=== PATIENT | male | born 1985 | race Two or more races ===

== ENCOUNTER 2020-05-29 10:00 | Emergency (ER) | payer OTHER ==
[2020-05-29] MEDS ORDERED: traMADol HCL 50 MG TAB PO ONE (14:00)
== END 2020-05-29 15:50 | disposition home or self-care (01) ==
LOC: ER 10:00
DX: H10.32 Unspecified acute conjunctivitis, left eye (principal); L02.212 Cutaneous abscess of back [any part, except buttock and flank]
CPT/HCPCS: 93926

== ENCOUNTER 2020-09-20 21:07 | Inpatient (IN) | payer MEDICAID, OTHER ==
[~2020-09-20] VITALS: Ht 180.3 cm; Wt 70.3 kg
[2020-09-20 22:20] LABS: Basophils # (auto) 0 10 ^3/uL (0-0.2); Basophils % (auto) 0.3 % (0.0-2.0); Eosinophils # (auto) 0 10 ^3/uL (0-0.8); Eosinophils % (auto) 0.4 % (0.0-7.0); Hematocrit 39.3 % (41.0-53.0); Lymphocytes # (auto) 1.3 10 ^3/uL (0.4-5.4); Lymphocytes % (auto) 11.1 % (10.0-50.0); Mean Corpuscular Hemoglobin 30.4 pg (28.0-32.0); Mean Corpuscular Hgb Conc. 33.2 g/dL (32.0-36.0); Mean Corpuscular Volume 91.7 fL (80.0-100.0); Monocytes % (auto) 8.1 % (0.0-12.0); Neutrophils # (auto) 9.4 10 ^3/uL (1.6-8.6); Neutrophils % (auto) 80.1 % (37.0-80.0); Platelet Count (auto) 406 10^3/uL (140-450); Red Blood Cells 4.29 10^6/uL (4.5-5.90); Red Cell Distribution Width 13.1 % (11.8-14.3); White Blood Cell 11.7 10^3/uL (4.4-10.8)
[2020-09-20 22:37] LABS: Albumin 3.1 g/dL (3.4-5.0); Calcium 8.6 mg/dL (8.5-10.1); Potassium 4.1 mmol/L (3.5-5.1)
[2020-09-20 22:40] LABS: BUN/Creatinine Ratio 15.1; Bilirubin, Total 0.3 mg/dL (0.2-1.0); Total Protein 7.6 g/dL (6.4-8.2)
[2020-09-21] MEDS ORDERED: cefTRIAXone 1GM/50ML D5W 50 ML IV ONE (00:45)
[2020-09-21] MEDS ORDERED: CLINDAMYCIN 900MG IV 50 ML IV ONE (01:30)
[2020-09-21] MEDS ORDERED: ONDANSETRON HCL 4 MG/2 ML VIAL IV ONE (02:15)
[2020-09-21] MEDS ORDERED: MORPHINE SULFATE 4 MG/ML SYR/VIAL IV ONE (02:15)
[2020-09-21] MEDS ORDERED: ACETAMINOPHEN 325 MG TAB PO ONE (02:15)
[2020-09-21] MEDS ORDERED: DOCUSATE SOD 100 MG CAP PO PRN (03:45)
[2020-09-21] MEDS ORDERED: ONDANSETRON HCL 4 MG/2 ML VIAL IV PRN (03:45)
[2020-09-21] MEDS ORDERED: VANCOMYCIN PER PHARMACY 0 MG IV SCH (03:45)
[2020-09-21] MEDS ORDERED: ACETAMINOPHEN 325 MG TAB PO PRN (03:45)
[2020-09-21] MEDS ORDERED: NITROGLYCERIN 0.4 MG SL TAB SL PRN (03:45)
[2020-09-21] MEDS ORDERED: MORPHINE SULF INJ 2 MG/ML SYRINGE 1ML IV PRN (03:45)
[2020-09-21 03:57] LABS: Basophils # (auto) 0.1 10 ^3/uL (0-0.2); Basophils % (auto) 0.6 % (0.0-2.0); Eosinophils # (auto) 0.1 10 ^3/uL (0-0.8); Eosinophils % (auto) 0.6 % (0.0-7.0); Hematocrit 37.6 % (41.0-53.0); Hemoglobin 12.4 g/dL (13.5-17.5); Lymphocytes # (auto) 1.6 10 ^3/uL (0.4-5.4); Lymphocytes % (auto) 13.7 % (10.0-50.0); Mean Corpuscular Hemoglobin 30.5 pg (28.0-32.0); Mean Corpuscular Hgb Conc. 32.9 g/dL (32.0-36.0); Mean Corpuscular Volume 92.7 fL (80.0-100.0); Monocytes # (auto) 1.2 10 ^3/uL (0-1.3); Monocytes % (auto) 9.7 % (0.0-12.0); Neutrophils % (auto) 75.4 % (37.0-80.0); Platelet Count (auto) 372 10^3/uL (140-450); Red Blood Cells 4.06 10^6/uL (4.5-5.90); Red Cell Distribution Width 13.1 % (11.8-14.3); White Blood Cell 11.9 10^3/uL (4.4-10.8)
[2020-09-21] MEDS ORDERED: VANCOMYCIN 1GM/250ML 250 ML IV ONE (04:00)
[2020-09-21 04:13] LABS: Albumin 2.6 g/dL (3.4-5.0); Calcium 8.3 mg/dL (8.5-10.1)
[2020-09-21 04:15] LABS: BUN/Creatinine Ratio 13.3
[2020-09-21 04:18] LABS: Bilirubin, Total 0.3 mg/dL (0.2-1.0); Total Protein 6.6 g/dL (6.4-8.2)
[2020-09-21] MEDS: SODIUM CHLOR 0.9% PF (SALINE LOCK) 10ML VIAL/SYR IV SCH ×3 (06:30→21:01)
[2020-09-21] MEDS: PIPERACILLIN-TAZOB 3.375GM 100 ML IV SCH ×3 (06:30→21:56)
[2020-09-21 06:37] LABS: Urine Amorphous Crystal FEW /hpf (None Seen); Urine Bacteria NONE SEEN /hpf (None Seen); Urine Blood Negative /uL (Negative); Urine Specific Gravity 1.021 (1.001-1.035); Urine WBC 2 /hpf (0 - 3)
[2020-09-21] MEDS: MORPHINE SULFATE 4 MG/ML SYR/VIAL IV PRN ×2 (10:17→15:32)
[2020-09-21] MEDS: FAMOTIDINE 20 MG TAB PO SCH ×2 (10:18→21:00)
[2020-09-21] MEDS: ASCORBIC ACID 500 MG TAB PO SCH ×2 (10:18→20:59)
[2020-09-21] MEDS: MULTIPLE VITAMIN TAB PO SCH (10:18)
[2020-09-21] MEDS: ZINC SULFATE 220mg CAP or TAB PO SCH (10:18)
[2020-09-21] MEDS: ENOXAPARIN SOD 40 MG/0.4 ML SYRINGE SC SCH (10:18)
[2020-09-21] MEDS ORDERED: CLINDAMYCIN 300MG IV 50 ML IV ONE (14:30)
--- NOTE | 2020-09-21 16:38 | NUR ---
Assessment Regarding social service consult for homeless. Patient stated he is not homeless and that he will be returning home with his mother. Patient refused to answer any more questions. Patient refused all resources. Informed EMIR Tolbert.
--- NOTE | 2020-09-21 17:30 | NUR ---
Telemetry admit from ER ASTER DURHAM admitted to Telemetry unit after SBAR received. Patient oriented to cassy FERNANDEZ RN, unit, room, bed, and unit policies regarding patient care and visiting hours. Patient now on continuous telemetry monitoring, tele box #[id number] and telemetry reading on arrival to unit is [id number]. Patient on room air, weighed by bedscale and encouraged to call if they need something. All questions and concerns addressed, patient verbalized understanding.
[2020-09-21 17:55] VITALS: BP 120/77
[2020-09-21 18:20] LABS: Alcohol, Urine < 3.0 mg/dL (0-10); Amphetamine Screen, Urine POSITIVE (NEGATIVE); Barbiturate Scree,Urine NEGATIVE (NEGATIVE); Benzodiazephine Screen, Urine NEGATIVE (NEGATIVE); Cannabinoid Screen, Urine POSITIVE (NEGATIVE); Cocaine Screen, Urine NEGATIVE (NEGATIVE); Opiate Scree,Urine NEGATIVE (NEGATIVE); Phencyclidine Screen, Urine NEGATIVE (NEGATIVE)
--- NOTE | 2020-09-21 18:27 | NUR ---
Wound photos taken
[2020-09-21] MEDS: Ensure HIGH Protein Chocolate 8oz Bottle PO SCH (18:29)
[2020-09-21] MEDS: HYDROcodone-ACET 5/325MG TAB PO PRN (18:29)
[2020-09-21] MEDS: VANCOMYCIN 1GM/250ML 250 ML IV SCH (18:29)
[2020-09-21 18:30] VITALS: BP 120/77
--- NOTE | 2020-09-21 19:09 | NUR ---
Care endorsed to [facility] RN [place]. Patient resting in bed comfortably, with even and unlabored respirations. All safety precautions in place.
[2020-09-21] MEDS: CLINDAMYCIN 300MG IV 50 ML IV SCH (20:59)
[2020-09-21 22:49] VITALS: BP 136/72
[2020-09-22] MEDS: VANCOMYCIN 1GM/250ML 250 ML IV SCH ×2 (02:11→09:41)
[2020-09-22] MEDS: HYDROcodone-ACET 5/325MG TAB PO PRN (03:56)
[2020-09-22] MEDS: CLINDAMYCIN 300MG IV 50 ML IV SCH ×2 (04:54→14:00)
[2020-09-22 05:50] VITALS: BP 120/78
[2020-09-22 06:06] LABS: Basophils # (auto) 0 10 ^3/uL (0-0.2); Basophils % (auto) 0.2 % (0.0-2.0); Eosinophils # (auto) 0.1 10 ^3/uL (0-0.8); Eosinophils % (auto) 0.9 % (0.0-7.0); Hematocrit 39.6 % (41.0-53.0); Hemoglobin 13.4 g/dL (13.5-17.5); Lymphocytes # (auto) 1.4 10 ^3/uL (0.4-5.4); Lymphocytes % (auto) 15.4 % (10.0-50.0); Mean Corpuscular Hemoglobin 31.1 pg (28.0-32.0); Mean Corpuscular Hgb Conc. 33.7 g/dL (32.0-36.0); Mean Corpuscular Volume 92.2 fL (80.0-100.0); Monocytes # (auto) 0.9 10 ^3/uL (0-1.3); Monocytes % (auto) 10.2 % (0.0-12.0); Neutrophils # (auto) 6.8 10 ^3/uL (1.6-8.6); Neutrophils % (auto) 73.3 % (37.0-80.0); Platelet Count (auto) 377 10^3/uL (140-450); Red Cell Distribution Width 13.3 % (11.8-14.3); White Blood Cell 9.2 10^3/uL (4.4-10.8)
[2020-09-22] MEDS: SODIUM CHLOR 0.9% PF (SALINE LOCK) 10ML VIAL/SYR IV SCH ×2 (06:06→13:16)
[2020-09-22] MEDS: PIPERACILLIN-TAZOB 3.375GM 100 ML IV SCH ×2 (06:06→14:00)
[2020-09-22 06:21] LABS: INR 1.03 (0.9-1.15)
[2020-09-22 06:35] LABS: Albumin 2.7 g/dL (3.4-5.0); BUN/Creatinine Ratio 17.9; Bilirubin, Total 0.5 mg/dL (0.2-1.0); Calcium 8.7 mg/dL (8.5-10.1)
--- NOTE | 2020-09-22 07:45 | NUR ---
Opening Note Assumed pt care from NOC RN. Pt is a/ox4 with no s/s of distress or SOB. Pt is currently sitting upright in bed with no complaints at this time. Wound to L contreras is open to air; pt self removed dressing. No drainage noted from wound. Discussed POC with pt and pending Podiatry consult. Safety measures maintained with call light within reach, bed in lowest position and side rails up. Will continue to monitor for changes.
[2020-09-22] MEDS: Ensure HIGH Protein Chocolate 8oz Bottle PO SCH ×2 (07:58→12:00)
[2020-09-22 09:00] VITALS: BP 124/71
[2020-09-22] MEDS: ZINC SULFATE 220mg CAP or TAB PO SCH (09:41)
[2020-09-22] MEDS: ASCORBIC ACID 500 MG TAB PO SCH (09:41)
[2020-09-22] MEDS: MULTIPLE VITAMIN TAB PO SCH (09:41)
[2020-09-22] MEDS: FAMOTIDINE 20 MG TAB PO SCH (09:41)
[2020-09-22] MEDS: ENOXAPARIN SOD 40 MG/0.4 ML SYRINGE SC SCH (09:42)
--- NOTE | 2020-09-22 10:00 | NUR ---
WOUND CARE NOTE: IN TO SEE PATIENT AT THIS TIME PER WOUND CARE CONSULT REQUEST. PATIENT ADMITTED TO [facility] WITH DIAGNOSIS OF LLE CELLULITIS, ABSCESS. PATIENT HAS CURRENT YONNY SCORE OF 19. PATIENT IS FULLY AMBULATORY. PATIENT STATES THAT HE RECEIVED WOUND TO E AFTER INJURING LEG ON CONCRETE. WOUND IS APPROXIMATELY 2 WEEKS OLD. WOUND GETTING WORSE, PRESENTED TO ER YESTERDAY. PATIENT IS NOTED TO HAVE AN OPEN LACERATION TO THE LEFT GE, MEASURING 2 X 1 X 0.3 CM. WOUND IS FULL THICKNESS, SCANT PINK PURULENT DRAINAGE NOTED. WOUND BED IS PALE RED AND DARK RED, WITH DARK RED, TAUTE PERIWOUND. CLEANSED WITH WOUND CLEANSER, PAT DRY WITH STERILE GAUZE. APPLIED THERAHONEY INTO WOUND BED. COVERED WITH OPTIFOAM GENTLE DRESSING. NO OTHER WOUNDS NOTED. RECOMMEND: EOD/PRN DRESSING CHANGE TO E WOUND, SKIN/WOUND CARE PLAN, ELEVATION OF LLE UP ONTO PILLOWS FOR EDEMA CONTROL, CONTINUED MONITORING BY WOUND CARE TEAM. Addendum: 09/22/20 at 1310 by Olya Gibbs RN Amended: Links added.
--- NOTE | 2020-09-22 11:12 | NUR ---
Pt Off Unit to Smoke Signed AMA in chart. Addendum: 09/22/20 at 1130 by JASON FIELDS RN RN PT BACK ON UNIT
--- NOTE | 2020-09-22 11:39 | NUR ---
Pt Upset Pt states "I want this IV out... I am not able to get food in the cafeteria but security won't allow me". Provided pt with education regarding pts and access to cafeteria. Pt the requests for me to take out the IV and then place a new one; further provided education on IV and purpose of. Offered pt food from pantry; pt refused. Calmed pt down at this point. Still upset and wishes to speak to the doctor about possible discharge. Notified pt of who MD was today. Will continue to monitor situation. Addendum: 09/22/20 at 1220 by JASON FIELDS RN RN Pt self removed IV stating, "I am going to go get something to eat". Educated pt on need for IV and treatment. Pt agreeable to treatment, but states "I just am going to get food from across the street and come back" Spoke with pt about how that would be leaving the hospital campus and therefore eloping. Pt states, "I will come back, I just am going to get something to eat". Pt further requested to see the Dr for his RX for antibiotics so he could leave. Spoke with adult high school instructorAlberto. Alberto as well as security spoke with pt about leaving the campus and eloping. Pt then walked out of room stating "I am going smoking, I am not a F child". Security aware of situation and will follow. Pt's IV is currently out. Pt still does have tele monitor on. Will continue to monitor situation. Addendum: 09/22/20 at 1233 by JASON FIELDS RN RN Pt returned to unit. Attempted to speak with pt and see if possibly starting a new IV on the pt for continuation of antibiotics. Pt states, "All I want is the Dr to come in and give me my antibiotic so I can leave... I am not trying to f stay here for 10 days". Discussed with pt the pending labs and cultures as well as consults needed before we could send him home with an Rx. Pt upset and states "well what is taking so long". Further reiterated the situation, pt still not agreeable to IV and adamant that he is to leave with a Rx and requests the Dr now. Notified that Dr is rounding currently. Told pt that I would be back within 30 minutes to allow the pt to compose himself and reassess the situation. Will continue to monitor the situation. Addendum: 09/22/20 at 1356 by JASON FIELDS RN RN Pt still refusing IV at this point. Will notify MD upon rounding.
[2020-09-22 11:53] VITALS: BP 123/69
--- NOTE | 2020-09-22 14:57 | NUR ---
Dr Maravilla at Bedside MD to see pt. Plans to d/c pt home today with ABX. Will implement and continue to monitor.
[2020-09-22 15:42] VITALS: BP 124/71
--- NOTE | 2020-09-22 16:03 | NUR ---
Tele 26 Sent to ICU Staff made aware.
--- NOTE | 2020-09-22 16:44 | NUR ---
Pt D/C'ed off Unit Pt ambulated off unit with all belongings, education material, and all questions were answered. Pt aware of follow up appointments as well as need to fill prescriptions. IV and tele box were d/c'ed prior to d/c.
== END 2020-09-22 16:49 | disposition home or self-care (01) | DRG 383 ==
LOC: ER 21:11 → TELE 21:12 → TELE-CENTR 09-21 17:30
PROVIDERS: ADMIT Nurse Practitioner Family; ATTEND Internal Medicine
DX: L03.116 Cellulitis of left lower limb (principal); E44.0 Moderate protein-calorie malnutrition; R65.10 Systemic inflammatory response syndrome (SIRS) of non-infectious origin without acute organ dysfunction; E88.09 Other disorders of plasma-protein metabolism, not elsewhere classified; D63.8 Anemia in other chronic diseases classified elsewhere; L08.9 Local infection of the skin and subcutaneous tissue, unspecified; R79.89 Other specified abnormal findings of blood chemistry; L02.416 Cutaneous abscess of left lower limb; W18.39XA Other fall on same level, initial encounter; F17.210 Nicotine dependence, cigarettes, uncomplicated; S81.802A Unspecified open wound, left lower leg, initial encounter; F14.10 Cocaine abuse, uncomplicated; Y93.89 Activity, other specified; Y99.8 Other external cause status; Y92.89 Other specified places as the place of occurrence of the external cause; Z79.899 Other long term (current) drug therapy
CPT/HCPCS: 36415; 73700; 80053; 80307; 81001; 83605; 84443; 85025; 85610; 87040; 87077; 87186; 87205; 96365; 96367; 96372; 96375; G0378; J0696; J2405; J2543; J3490

== ENCOUNTER 2021-05-05 18:54 | Emergency (ER) | payer MEDICAID ==
[~2021-05-05] VITALS: Ht 180.3 cm; Wt 77.1 kg
[2021-05-05] MEDS ORDERED: ONDANSETRON HCL 4 MG/2 ML VIAL IV ONE (20:00)
[2021-05-05] MEDS ORDERED: ALUM & MAG HYDROX-SIMETH LIQ(MAALOX) 30 ML PO ONE (20:00)
[2021-05-05] MEDS ORDERED: LIDOCAINE VISCOUS 2% 15ML UD PO ONE (20:00)
[2021-05-05] MEDS ORDERED: SODIUM CHLORIDE 0.9% 1,000 ML IVB ONE (20:00)
[2021-05-05 20:24] LABS: Basophils # (auto) 0.1 10 ^3/uL (0-0.2); Basophils % (auto) 0.8 % (0.0-2.0); Eosinophils # (auto) 0 10 ^3/uL (0-0.8); Eosinophils % (auto) 0.6 % (0.0-7.0); Hematocrit 44.5 % (41.0-53.0); Hemoglobin 14.8 g/dL (13.5-17.5); Lymphocytes # (auto) 1.8 10 ^3/uL (0.4-5.4); Lymphocytes % (auto) 23.4 % (10.0-50.0); Mean Corpuscular Hemoglobin 30.1 pg (28.0-32.0); Mean Corpuscular Hgb Conc. 33.2 g/dL (32.0-36.0); Mean Corpuscular Volume 90.6 fL (80.0-100.0); Monocytes # (auto) 0.7 10 ^3/uL (0-1.3); Monocytes % (auto) 9.3 % (0.0-12.0); Neutrophils % (auto) 65.9 % (37.0-80.0); Nucleated Red Blood Cells % 0.1 %; Red Blood Cells 4.91 10^6/uL (4.5-5.90); Red Cell Distribution Width 13.6 % (11.8-14.3); White Blood Cell 7.6 10^3/uL (4.4-10.8)
[2021-05-05 20:26] LABS: Anion Gap 9 (5-15); Blood Alcohol < 3.0 mg/dL (0-5); Blood Urea Nitrogen 12 mg/dL (7-18); Calcium 9.1 mg/dL (8.5-10.1); Carbon Dioxide 24 mmol/L (21-32); Chloride 106 mmol/L (98-107); Glucose 114 mg/dL (74-106); Lipase 69 U/L (73-393); Magnesium 2.2 mg/dL (1.6-2.6); Potassium 3.9 mmol/L (3.5-5.1); Sodium 139 mmol/L (136-145)
[2021-05-05 20:30] LABS: Alanine Aminotransferase 159 U/L (16-61); Alkaline Phosphatase 127 U/L (45-117); Aspartate Aminotransferase 79 U/L (15-37); BUN/Creatinine Ratio 10.7; Bilirubin, Total 0.9 mg/dL (0.2-1.0); GFR African American 96 mL/min; GFR Non-African American 79 mL/min
[2021-05-05] MEDS ORDERED: IOHEXOL 300 MG/ML 100ML BOTTLE IJ ONE (20:32)
[2021-05-05 21:55] VITALS: BP 126/97
== END 2021-05-06 00:02 | disposition home or self-care (01) ==
LOC: EDBD 18:54 → EDUNIT# 18:54 → ER 18:56
DX: R74.01 Elevation of levels of liver transaminase levels (principal); R10.84 Generalized abdominal pain; R74.8 Abnormal levels of other serum enzymes; F12.10 Cannabis abuse, uncomplicated; F15.10 Other stimulant abuse, uncomplicated; Z59.0 Homelessness
CPT/HCPCS: 36415; 74177; 80053; 80320; 83605; 83690; 83735; 85025; 85049; 93005; 96361; 96374; 99285; J2405; J7030; Q9967

== ENCOUNTER 2021-09-18 22:21 | Emergency (ER) | payer MEDICAID ==
[~2021-09-18] VITALS: Ht 180.3 cm; Wt 81.6 kg
[2021-09-18 22:22] VITALS: BP 152/99
[2021-09-19] MEDS ORDERED: KETOROLAC TROMETH 60MG/2ML VIAL IM ONE (02:30)
[2021-09-19] MEDS ORDERED: OXYCODONE W/ ACETAMINOPHEN 5/325MG TABLET PO ONE (02:30)
[2021-09-19] MEDS ORDERED: cefTRIAXone W LIDOCAINE 500 MG IM IM ONE (02:30)
[2021-09-19] MEDS ORDERED: AZITHROMYCIN 250 MG TAB PO ONE (02:30)
[2021-09-19] MEDS ORDERED: cefTRIAXone SOD 1,000 MG VL ONE (04:55)
[2021-09-19] MEDS ORDERED: LIDOCAINE 1% HCL (LOCAL ANESTH.) INJ 20ML MDV ID ONE (05:00)
== END 2021-09-19 04:42 | disposition left against medical advice (07) ==
LOC: ER 22:24
DX: N50.812 Left testicular pain (principal); F17.210 Nicotine dependence, cigarettes, uncomplicated; F12.10 Cannabis abuse, uncomplicated; F15.10 Other stimulant abuse, uncomplicated; Z59.00 Homelessness unspecified; Z53.29 Procedure and treatment not carried out because of patient's decision for other reasons
CPT/HCPCS: 76870; 99284; J0696; J1885; J2001

== ENCOUNTER 2023-09-23 18:06 | Emergency (ER) | payer MEDICAID ==
[~2023-09-23] VITALS: Ht 180.3 cm; Wt 79.2 kg
[2023-09-23 18:37] LABS: Basophils # (auto) 0 10 ^3/uL (0-0.2); Basophils % (auto) 0.3 % (0.0-2.0); Eosinophils # (auto) 0 10 ^3/uL (0-0.8); Eosinophils % (auto) 0.4 % (0.0-7.0); Hematocrit 38.4 % (41.0-53.0); Hemoglobin 12.7 g/dL (13.5-17.5); Lymphocytes # (auto) 1.1 10 ^3/uL (0.4-5.4); Mean Corpuscular Hemoglobin 28.8 pg (28.0-32.0); Mean Corpuscular Volume 87.3 fL (80.0-100.0); Monocytes # (auto) 0.6 10 ^3/uL (0-1.3); Monocytes % (auto) 7.8 % (0.0-12.0); Neutrophils # (auto) 6.4 10 ^3/uL (1.6-8.6); Neutrophils % (auto) 78.5 % (37.0-80.0); Red Blood Cells 4.39 10^6/uL (4.5-5.90); Red Cell Distribution Width 13.3 % (11.8-14.3); White Blood Cell 8.1 10^3/uL (4.4-10.8)
[2023-09-23 18:58] LABS: Alanine Aminotransferase 91 U/L (7-40); Albumin 4.1 g/dL (3.2-4.8); Alkaline Phosphatase 114 U/L (46-116); Anion Gap 5 (5-15); Aspartate Aminotransferase 61 U/L (13-40); BUN/Creatinine Ratio 16.1 (10.0-20.0); Bilirubin, Total 0.6 mg/dL (0.2-1.0); Blood Urea Nitrogen 14 mg/dL (9-23); Calcium 8.5 mg/dL (8.7-10.4); Carbon Dioxide 27 mmol/L (20-30); Chloride 102 mmol/L (98-107); Glucose 96 mg/dL (74-106); Potassium 3.8 mmol/L (3.5-5.1); Sodium 134 mmol/L (136-145)
[2023-09-23 18:59] LABS: Total Protein 7.4 g/dL (5.7-8.2)
[2023-09-24 02:48] LABS: Blood Alcohol 5.3 mg/dL (<10)
[2023-09-24 02:49] LABS: Magnesium 1.9 mg/dL (1.6-2.6)
[2023-09-24] MEDS ORDERED: POLY335015 PO (05:44)
[2023-09-24 05:47] VITALS: BP 118/78
[2023-09-24 06:10] VITALS: PULSE 89; RESP 18; O2SAT 98
== END 2023-09-24 04:27 | disposition home or self-care (01) ==
LOC: ER 18:06
DX: K59.00 Constipation, unspecified (principal); R11.2 Nausea with vomiting, unspecified; R19.7 Diarrhea, unspecified; F17.210 Nicotine dependence, cigarettes, uncomplicated; Z59.00 Homelessness unspecified
CPT/HCPCS: 36415; 74176; 80053; 80320; 82010; 83605; 83690; 83735; 84484; 85025

== ENCOUNTER 2024-01-04 21:40 | Inpatient (IN) | payer MEDICAID ==
[~2024-01-04] VITALS: Ht 182.9 cm; Wt 81.8 kg
[2024-01-04] MEDS: NALOXONE HCL 1MG/ML 2ML SYRINGE IV ONE ×2 (21:30→22:59)
[~2024-01-04 21:40] MED LIST: POLY335015 PO
[2024-01-04 22:03] VITALS: PULSE 89; RESP 14; O2SAT 100
[2024-01-04 22:15] LABS: Basophils # (auto) 0 10 ^3/uL (0-0.2); Basophils % (auto) 0.2 % (0.0-2.0); Eosinophils # (auto) 0.1 10 ^3/uL (0-0.8); Eosinophils % (auto) 0.7 % (0.0-7.0); Hemoglobin 11.4 g/dL (13.5-17.5); Lymphocytes # (auto) 1.2 10 ^3/uL (0.4-5.4); Lymphocytes % (auto) 12.6 % (10.0-50.0); Mean Corpuscular Hemoglobin 27.5 pg (28.0-32.0); Mean Corpuscular Hgb Conc. 31.7 g/dL (32.0-36.0); Mean Corpuscular Volume 86.8 fL (80.0-100.0); Monocytes # (auto) 1.2 10 ^3/uL (0-1.3); Monocytes % (auto) 13.3 % (0.0-12.0); Neutrophils # (auto) 6.8 10 ^3/uL (1.6-8.6); Neutrophils % (auto) 73.2 % (37.0-80.0); Red Blood Cells 4.15 10^6/uL (4.5-5.90); Red Cell Distribution Width 14.3 % (11.8-14.3); White Blood Cell 9.4 10^3/uL (4.4-10.8)
[2024-01-04 22:32] LABS: Acetaminophen < 2.0 UG/ML (10.0-20.0); Alanine Aminotransferase 122 U/L (7-40); Albumin 3.9 g/dL (3.2-4.8); Alkaline Phosphatase 139 U/L (46-116); Anion Gap 5 (5-15); Aspartate Aminotransferase 129 U/L (13-40); BUN/Creatinine Ratio 10.2 (10.0-20.0); Bilirubin, Total 0.4 mg/dL (0.2-1.0); Blood Urea Nitrogen 16 mg/dL (9-23); Calcium 8.8 mg/dL (8.7-10.4); Carbon Dioxide 29 mmol/L (20-30); Chloride 110 mmol/L (98-107); Glucose 92 mg/dL (74-106); Magnesium 2.3 mg/dL (1.6-2.6); Potassium 4.5 mmol/L (3.5-5.1); Sodium 144 mmol/L (136-145); Total Protein 7.2 g/dL (5.7-8.2)
[2024-01-04 22:33] LABS: Salicylate < 3.0 mg/dL (2.8-20.0)
[2024-01-04 22:52] LABS: Blood Alcohol < 3.0 mg/dL (<10)
[2024-01-04] MEDS ORDERED: NITROGLYCERIN 0.4 MG SL TAB SL PRN (23:15)
[2024-01-04] MEDS ORDERED: DOCUSATE SOD 100 MG CAP PO PRN (23:15)
[2024-01-04] MEDS ORDERED: SODIUM CHLORIDE 0.9% 1,000 ML IV SCH (23:15)
[2024-01-04] MEDS ORDERED: ONDANSETRON HCL 4 MG/2 ML VIAL IV PRN (23:15)
[2024-01-04] MEDS ORDERED: MORPHINE SULFATE INJ 2 MG/ml SYRG IV PRN (23:15)
[2024-01-04] MEDS: PANTOPRAZOLE 40 MG/10 ML VIAL INJ IV ONE (23:33)
[2024-01-05] MEDS: SODIUM CHLORIDE 0.9% 1,000 ML IV SCH (00:12)
[2024-01-05] MEDS: NALOXONE HCL 1MG/ML 2ML SYRINGE IV ONE (01:16)
[2024-01-05 04:00] VITALS: TEMP 98
[2024-01-05 04:54] LABS: Urine Bacteria NONE SEEN /hpf (None Seen); Urine Blood Negative /uL (Negative); Urine Clarity Clear (Clear); Urine Color Yellow (Yellow); Urine Hyaline Cast FEW /lpf (0 - 2); Urine Protein, UAD 1+ (Negative); Urine Specific Gravity 1.021 (1.001-1.035); Urine Urobilinogen Normal (Negative); Urine WBC 3 /hpf (0 - 3); Urine pH 5.5 (5.0-8.0)
[2024-01-05 05:02] LABS: Amphetamine Screen, Urine Pos (NEGATIVE); Barbiturate Scree,Urine Neg (NEGATIVE); Benzodiazephine Screen, Urine Neg (NEGATIVE)
[2024-01-05 05:03] LABS: Cannabinoid Screen, Urine Pos (NEGATIVE); Cocaine Screen, Urine Neg (NEGATIVE); Opiate Scree,Urine Neg (NEGATIVE); Phencyclidine Screen, Urine Neg (NEGATIVE)
[2024-01-05 07:00] VITALS: BP 110/51
[2024-01-05 07:12] LABS: Basophils # (auto) 0 10 ^3/uL (0-0.2); Basophils % (auto) 0.4 % (0.0-2.0); Eosinophils # (auto) 0.1 10 ^3/uL (0-0.8); Eosinophils % (auto) 0.7 % (0.0-7.0); Hemoglobin 11.7 g/dL (13.5-17.5); Lymphocytes # (auto) 1.5 10 ^3/uL (0.4-5.4); Lymphocytes % (auto) 21.4 % (10.0-50.0); Mean Corpuscular Hemoglobin 27.8 pg (28.0-32.0); Mean Corpuscular Hgb Conc. 32.6 g/dL (32.0-36.0); Mean Corpuscular Volume 85.3 fL (80.0-100.0); Neutrophils # (auto) 4.5 10 ^3/uL (1.6-8.6); Neutrophils % (auto) 63.5 % (37.0-80.0); Nucleated Red Blood Cells % 0.4 %; Red Blood Cells 4.23 10^6/uL (4.5-5.90); Red Cell Distribution Width 14.6 % (11.8-14.3); White Blood Cell 7.1 10^3/uL (4.4-10.8)
[2024-01-05 07:22] LABS: Alanine Aminotransferase 107 U/L (7-40); Alkaline Phosphatase 133 U/L (46-116); Calcium 8.8 mg/dL (8.5-10.1); Carbon Dioxide 29 mmol/L (20-30); Chloride 111 mmol/L (98-107)
[2024-01-05 07:23] LABS: Albumin 3.5 g/dL (3.2-4.8); Anion Gap 5 (5-15); Aspartate Aminotransferase 86 U/L (13-40); BUN/Creatinine Ratio 11.8 (10.0-20.0); Bilirubin, Total 0.4 mg/dL (0.2-1.0); Blood Urea Nitrogen 16 mg/dL (9-23); Glucose 111 mg/dL (74-106); Potassium 4.6 mmol/L (3.5-5.1); Sodium 145 mmol/L (136-145); Total Protein 6.7 g/dL (5.7-8.2)
[2024-01-05 07:40] VITALS: O2SAT 100
[2024-01-05 07:50] VITALS: PULSE 79; RESP 12; O2SAT 99
[2024-01-05] MEDS ORDERED: PANTOPRAZOLE 40 MG TAB PO SCH (10:00)
[2024-01-05] MEDS ORDERED: PANTOPRAZOLE 40 MG/10 ML VIAL INJ IV SCH (10:00)
[2024-01-07 08:52] LABS: Hepatitis B Surface Antigen Negative (Negative)
[2024-01-07 09:12] LABS: Hepatitis A Ab IgM Negative
[2024-01-07 09:13] LABS: Hepatitis B Core IgM Negative
[2024-01-07 11:05] LABS: Hepatitis C Antibody Reactive (Negative)
== END 2024-01-05 07:55 | disposition left against medical advice (07) | DRG 812 ==
LOC: ER 21:40 → EDBD 21:40 → TELE 23:09
PROVIDERS: ADMIT Nurse Practitioner Family; ATTEND Internal Medicine
DX: T40.411A Poisoning by fentanyl or fentanyl analogs, accidental (unintentional), initial encounter (principal); J96.01 Acute respiratory failure with hypoxia; N17.0 Acute kidney failure with tubular necrosis; G92.9 Unspecified toxic encephalopathy; E86.0 Dehydration; R74.01 Elevation of levels of liver transaminase levels
CPT/HCPCS: 36415; 70450; 71045; 76705; 80053; 80074; 80307; 80320; 80329; 81001; 82140; 83735; 84484; 85025; 96374; 96375; 96376; C9113; G0378